=== PATIENT | male | born 1995 | race African-American/Black ===

== ENCOUNTER 2024-08-06 18:07 | Emergency (ER) | payer MEDICAID ==
[~2024-08-06] VITALS: Ht 177.8 cm; Wt 72.7 kg
[2024-08-06 18:21] VITALS: O2SAT 99
[2024-08-06 18:41] LABS: *AMPHETAMINES SCREEN URINE PRESUMPTIVE POSITIVE (NEGATIVE); *BARBITURATES SCREEN URINE NEGATIVE (NEGATIVE); *BENZODIAZEPINES SCREEN URINE NEGATIVE (NEGATIVE); *COCAINE SCREEN URINE NEGATIVE (NEGATIVE); CANNABINOID URINE SCREEN NEGATIVE (NEGATIVE); ECSTASY MDMA SCREEN URINE NEGATIVE (NEGATIVE); METHADONE URINE SCREEN NEGATIVE (NEGATIVE); OPIATES URINE SCREEN NEGATIVE (NEGATIVE); PHENCYCLIDINE URINE SCREEN NEGATIVE (NEGATIVE)
[2024-08-06 19:55] VITALS: BP 129/78; PULSE 80; RESP 16; TEMP 36.8; O2SAT 98
== END 2024-08-06 20:05 | disposition home or self-care (01) ==
LOC: ER 18:07
DX: F17.200 Nicotine dependence, unspecified, uncomplicated (principal); F15.90 Other stimulant use, unspecified, uncomplicated; F41.9 Anxiety disorder, unspecified; R42 Dizziness and giddiness; Z79.899 Other long term (current) drug therapy
CPT/HCPCS: 80305; 99283